=== PATIENT | male | born 1955 | race Caucasian/White ===

== ENCOUNTER 2024-10-22 12:18 | Outpatient (CLI) | payer MEDICARE, SELFPAY ==
--- NOTE | 2024-10-29 15:39 | WPDHOLTEREM ---
Holter/Event Monitor Holter/Event Monitor Date of procedure: 10/22/24 Holter/Event Procedure: 3-7 Day Holter Monitor Indications: Hypertension Conclusion: 1. 5 days holter monitor on 10/22/24. 2. Underlying rhythm is atrial fibrillation, HR range 43-143 bpm; average HR 73 bpm. HR at 43 bpm was on 10/23/24 at 4:20 am. 3. No other supraventricular arrhythmias. 4. There are rare premature ventricular complexes and rate ventricular couplets. No ventricular tachycardia. 5. No significant pauses greater than 3 seconds. 6. Patient reports 3 episodes of symptoms of lightheadedness which demonstrate atrial fibrillation, HR range 47-101 bpm.
== END 2024-10-22 12:19 | disposition home or self-care (01) ==
PROVIDERS: PCP Family Medicine; Visit Provider Family Medicine
DX: I48.91 Unspecified atrial fibrillation (principal); K40.90 Unilateral inguinal hernia, without obstruction or gangrene, not specified as recurrent; G62.9 Polyneuropathy, unspecified; I10 Essential (primary) hypertension; E78.5 Hyperlipidemia, unspecified
CPT/HCPCS: 93242

== ENCOUNTER 2025-01-07 09:26 | Outpatient (CLI) | payer MEDICARE, SELFPAY ==
--- NOTE | ~2025-01-07 | US_ITS ---
US pelvic limited 01/07/2025 10:12 Indication: Pain in the groin region Procedure: High-resolution ultrasound of the right and left groin Comparison: No prior studies for comparison. Findings: Normal heterogeneous soft tissues without evidence for focal mass, fluid collection or shweta ia. Impression: 1: Normal bilateral ultrasound of the groin. Reviewed, dictated and finalized at location A. Impression: 1: Normal bilateral ultrasound of the groin.
--- OUTSIDE RECORDS SUMMARY | 2025-01-07 10:14 | XMS_ITS | Clinical Summary ---
Author Organization [facility] Address [facility] [place] [address] Care Team Providers Care Taping Foreman Name Role Phone Adrián Padilla MD Primary Care Provider [phone]- [phone] Allergies Active Allergy Reactions Criticality Noted Date Comments Lisinopril Cough 07/18/2014 Morphine And Codeine Rash Low 03/11/2013 Medications latanoprost 0.005 % ophthalmic solution 9 Active atenolol (TENORMIN) 50 MG tabletIndications: Essential hypertension Take 1 tablet (50 mg total) by mouth 2 (two) times daily. 180 tablet 3 3 Active simvastatin (ZOCOR) 10 MG tabletIndications: Mixed hyperlipidemia Take 1 tablet (10 mg total) by mouth daily. 90 tablet 3 3 Active metroNIDAZOLE (ROSADAN) 0.75 % gelIndications:Ros acea Apply topically 2 (two) times daily. 135 g 3 3 Active meloxicam (MOBIC) 15 MG tabletIndications: Primary osteoarthritis involving multiple joints Take 1 tablet (15 mg total) by mouth daily. 90 tablet 3 3 Active losartan (COZAAR) 50 MG tabletIndications: Essential hypertension Take 1 tablet (50 mg total) by mouth daily. 90 tablet 3 3 Active Active Problems Problem Noted Date Diagnosed Date Morbid (severe) obesity due to excess calories 0 06/20/2022 Skin tag 10/13/2021 Dermatitis 10/29/2019 Bilateral impacted cerumen 10/29/2019 Pilar cyst 09/27/2017 Seborrheic keratosis 09/27/2017 Tinea cruris 09/27/2017 Type 2 diabetes mellitus wit hout complication, without long-term current use of insulin ([facility]) 04/10/2017 Rosacea 02/15/2016 Osteoarthrosis 08/12/2014 Essential hypertension 01/01/2014 Overview (04/10/2019): Description: prior to 04/30/2012 Capillary hemangioma 01/01/2014 Mixed hyperlipidemia 03/11/2013 Resolved Problems Problem Noted Date Diagnosed Date Resolved Date Cellulitis 07/18/2014 05/16/2022 Cerumen impaction 03/11/2013 05/16/2022 Conjunctivitis 03/11/2013 05/16/2022 Encounter for preventive health examination 03/11/2013 06/25/2020 Immunizations Name Administration Dates Next Due Fluzone High Dose - >Age 65 (Prefilled Syringe) 08/15/2023 Influenza (Generic) 07/19/2014 Influenza Adult (Generic) 08/15/2023,07/31/2022, 09/13/2021 Pneumococcal (Pneumovax 23) 09/30/2021, 4 Pneumococcal (Prevnar 7) 10/15/2013 Tdap (Generic) 04/30/2012 Family History Medical History Relation Comments Stroke Father Breast Cancer Mother Relation Status Comments Father (Age 76) Mother (Age 63) Social History Tobacco Use Types Packs/Day Years Used Date Smoking Tobacco: Never Smokeless Tobacco: Never Alcohol Use Standard Drinks/Week Comments Not Currently 0 (1 standard drink = 0.6 oz pur e alcohol) Sex and Gender Information Value Date Recorded Sex Assigned at Not on file Legal Sex Male 5:00 PM CDT Gender Identity Not on file Sexual Orientation Not on file 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 Not on file Not on file Not on yajaira e Last Filed Vital Signs Vital Sign Reading Time Taken Comments Blood Pressure 170/102 09/25/2023 1:03 PM MICROFILM TECHNICIAN Pulse 56 04/22/2019 2:10 PM CDT Temperature 36.8 C (98.2 F) 10/29/2019 3:32 PM MICROFILM TECHNICIAN Respiratory Rate - - Oxygen Saturation - - Inhaled Oxygen Concentration - - Weight 116.1 kg (256 lb) 09/25/2023 1:03 PM MICROFILM TECHNICIAN Height 170.2 cm (5' 7 ) 07/02/2023 3:23 PM CDT Body Mass Index 40.1 07/02/2023 3:23 PM CDT Plan of Treatment Health Maintenance Due Date Last Done Comments Colorectal Cancer Screening Colonoscopy (10 Years) 1955 Kidney Health Evaluation 1955 Diabetes: Retinopathy Eye Exam 1973 Hepatitis C 1973 Zoster Vaccines (1 of 2) 2005 RSV Immunization or 60+ Years (1 - Risk 60-74 years 1-dose series) 2015 DTaP, Tdap and Td Vaccines (2 - Td or Tdap) 04/30/2022 04/30/2012 Pneumococcal Vaccine: 65+ Years (2 of 2 - PCV) 09/30/2022 09/30/2021, 12/05/2013, 10/15/2013 Hemoglobin A1C 01/16/2024 07/17/2023, 07/16, 09/13/2021, Additional history exists COVID-19 Vaccine ( season) 2024 08/11/2021, 12/19/2020 Annual Medicare Wellness Visit 07/03/2024 07/02/2023 Influenza Adult (#1) 2024 08/15/2023, 08/15/2023, 07/31/2022, Additional history exists Lipid Panel 07/17/2024 07/17/2023, 1012/2022, 08/11/2022, Additional history exists Meningococcal B Vaccine Aged Out No l onger eligible based on patient's age to complete this topic Meningococcal Vaccine Aged Out No delano maru eligible based on patient's age to complete this topic RSV Immunizations Under 20 Months Aged Out No longer eligible based on patient's age to complete this topic Procedures Procedure Name Priority Date/Time Associated Diagnosis Comments HEMOGLOBIN, GLYCOSYLATED Routine 07/17/2023 8:58 AM CDT Essential hypertension Type 2 diabetes mellitus without complication, without long-term current use of insulin LIPID PANEL Routine 07/17/2023 8:57 AM CDT Essential hypertension Type 2 diabetes mellitus without complication, without long-term current use of insulin from Last 3 Months or Most Recently Relevant to Health Maintenance Results * HEMOGLOBIN, GLYCOSYLATED (07/17/2023 8:58 AM CDT) HGB A1C 6.1 4.2 - 6.5 % [facility] 07/17/2023 8:58 AM CDT us Adrián Padilla MD LABORATORY Final Resul t [facility] [address] [facility] [address] [place] [id number], * LIPID PANEL (07/17/2023 8:57 AM CDT) CHOLESTEROL 149 0 - 199 MG/DL [facility] TRIGLYCERIDES 118 0.00 - 150.00 MG/DL [facility] Comment: NCEP REFERENCE VALUES FOR TRIGLYCERIDES: NORMAL: <150 MG/DL BORDERLINE HIGH: 150 - 199 MG/DL HIGH: 200 - 499 MG/DL VERY HIGH: >/= 500 MG/DL HDL 44 >40 MG/DL [facility] LDL (CALCULATED) 84 0 - 99 MG/DL [facility] Comment: CUTOFF VALUES RECOMMENDED BY THE NATIONAL CHOLESTEROL EDUCATION PROGRAM: DESIRABLE: CHOLESTEROL <200 MG/DL LDL <100 MG/DL BORDERLINE: CHOLESTEROL 200-239 MG/DL LDL 101-159 MG/DL HIGHER RISK: CHOLESTEROL >240 MG/DL LDL >160 MG/DL, HDL <40 MG/DL NON HDL CHOLESTEROL 105 NO REFERENCE RANGE MG/DL [facility] Comment: A REASONABLE GOAL FOR NON-HDL CHOLESTEROL IS ONE THAT IS 30 MG/DL HIGHER THAN THE LDL CHOLESTEROL GOAL. CHOL/HDL RATIO 3.4 0.0 - 5.0 . [facility] Comment: IS PATIENT FASTING?->YES ON FEBRUARY 06, 2023, [facility] CHANGED THE EQUATION FOR CALCULATING ESTIMATED LOW-DENSITY LIPOPROTEIN-CHOLESTEROL (LDL-C) FROM THE FRIEDEWALD EQUATION TO THE HEATHER/LLANOS EQUATION. THIS NEW EQUATION IS ONLY VALID FOR LIPID PANELS WITH TRIGLYCERIDES < 400 MG/DL. STUDIES HAVE DEMONSTRATED THAT THIS NEW EQUATION WILL IMPROVE THE ACCURACY OF LDL-C, ESPECIALLY IN SCENARIOS WHEN LDL-C CONCENTRATIONS ARE RELATIVELY LOW (< 100 MG/DL), TRIGLYCERIDES ARE ELEVATED, OR PATIENT IS NON-FASTING. REFERENCES: - OSVALDO ROMERO, MARTY SARAH, JULIETA MONSALVE, RADHA MANNING, RADHA CLEMENTE, MAY LOWRY, AND ERIKA ROLDAN. 2013. COMPARISON OF A NOVEL METHOD VS THE FRIEDEWALD EQUATION FOR ESTIMATING LOW-DENSITY LIPOPROTEIN CHOLESTEROL LEVELS FROM THE STANDARD LIPID PROFILE. GENARO: THE JOURNAL OF THE [employer] 310 (19): 2061-68. - KIEL V, FLORA J, NANI A, TAMIA M, АЛЕКСАНДР R, MAGNOLIA E, ESSENCE RS, JAMRA SR, HEATHER SS. FASTING VERSUS NONFASTING AND LOW-DENSITY LIPOPROTEIN CHOLESTEROL ACCURACY. CIRCULATION. 2018 OCT 16;137(1):10-19. 07/17/2023 8:57 AM CDT 07/18/2023 6:11 AM CDT us Adrián Padilla MD LABORATORY Final Resul t [facility] [address] [place] [address], from Last 3 Months or Most Recently Relevant to Health Maintenance Insurance [facility]ICARE [facility] Care Teams Taping Foreman Relationship Specialty Start Date End Date Adrián Padilla MD [address] [phone] PCP - General 09/11/15
== END 2025-01-07 09:27 | disposition home or self-care (01) ==
PROVIDERS: PCP Family Medicine; Visit Provider Family Medicine
DX: K40.90 Unilateral inguinal hernia, without obstruction or gangrene, not specified as recurrent (principal)
CPT/HCPCS: 76857

== ENCOUNTER 2025-01-26 12:24 | Outpatient (CLI) | payer MEDICARE, SELFPAY ==
--- NOTE | 2025-01-26 12:45 | ECHO_ITS ---
Patient Info Name: Garrison Montemayor Age: 69 years : 1955 Gender: Male Ht: 69 in Wt: 240 lbs BSA: 2.34 m2 HR: 75 bpm BP: 116 / 83 mmHg Heart Rhythm: Atrial Fibrillation Technical Quality: Good Exam Date: 01/26/2025 12:50 PM Exam Location: Echo Lab Patient Status: Outpatient Admit Date: 01/26/2025 Staff Ordering Physician: Elvin Houser DO Special Library Librarian: Davina Rios RDCS Attending Provider: Elvin Houser DO Referring Physician: Mik YUSUF; Exam Type: CA echo doppler color flow Study Info Indications R06.09 - Other forms of dyspnea Complete two-dimensional, color flow and Doppler transthoracic echocardiogram is performed. Summary 1. Complete two-dimensional, color flow and Doppler transthoracic echocardiogram is performed. 2. Left ventricular chamber dimension is normal. 3. Left ventricular systolic function is normal, estimated at 60-65%. 4. The left ventricular diastolic function is abnormal. 5. E/e' 10 is mildly elevated. 6. Left atrial chamber dimension is moderately enlarged. 7. Right atrial chamber dimension is mildly enlarged. 8. There is mild aortic valve sclerosis. 9. There is mild aortic valve regurgitation. 10. There is mild mitral valve regurgitation. 11. There is mild tricuspid valve regurgitation. 12. No pulmonary hypertension, estimated pulmonary arterial systolic pressure is 27 mmHg. 13. There is mild pulmonic regurgitation. Left Ventricle E/e' 10 is mildly elevated. Left ventricular chamber dimension is normal. Left ventricular systolic function is normal, estimated at 60-65%. The left ventricular diastolic function is abnormal. Right Ventricle Right ventricular systolic function is normal and with normal TAPSE 1.8 cm. Right ventricular chamber dimension is normal. Left Atria Left atrial chamber dimension is moderately enlarged. Right Atria Right atrial chamber dimension is mildly enlarged. Aortic Valve The aortic valve is trileaflet. There is mild aortic valve sclerosis. There is no aortic valve stenosis. There is mild aortic valve regurgitation. Pulmonic Valve There is mild pulmonic regurgitation. Mitral Valve There is no mitral valve stenosis. There is mild mitral valve regurgitation. Tricuspid Valve There is mild tricuspid valve regurgitation. No pulmonary hypertension, estimated pulmonary arterial systolic pressure is 27 mmHg. Pericardium/Pleural There is no pericardial effusion. Inferior Vena Cava Normal inferior vena cava with >50% collapse upon inspiration consistent with normal right atrial pressure, 5 mmHg. Aorta The aortic root size at the sinus of Valsalva is normal. Left Ventricular Outflow Tract Name Value Normal LVOT 2D LVOT Diameter 2.0 cm Pulmonic Valve Name Value Normal RVOT Doppler RVOT Peak Gradient 2 mmHg PV Doppler PV Peak Gradient 4 mmHg Mitral Valve Name Value Normal MV Doppler MV Decel [place] 577 cm/s2 MV PHT 47 ms MV Area (PHT) 4.7 cm2 4.0-5.0 MV Diastolic Function MV E Peak Velocity 93 cm/s MV A Peak Velocity 0 cm/s MV E/A 186.4 MV Decel Time 161 ms Tricuspid Valve Name Value Normal TV Regurgitation Doppler TR Peak Velocity 237 cm/s TR Peak Gradient 21 mmHg Estimated PAP/RSVP RA Pressure 5 mmHg <=5 PA Systolic Pressure 27 mmHg <36 RV Systolic Pressure 27 mmHg <36 Aorta Name Value Normal Ascending Aorta Ao Root Diameter (MM) 3.8 cm Ao Root Diam Index (MM) 1.6 cm/m2 Aortic Valve Name Value Normal AV Doppler AV Peak Velocity 119 cm/s AV Peak Gradient 5 mmHg AV Mean Gradient 3 mmHg AV VTI 23 cm AV Regurgitation 2D LVOT Area 3.0 cm2 AV Regurgitation Doppler AR Decel Time 2,774 ms AR Decel [place] 150 cm/s2 AR PHT 804 ms Ventricles Name Value Normal LV Dimensions 2D/MM IVS Diastolic Thickness (2D) 1.1 cm 0.6-1.0 IVS Diastole Thickness (MM) 1.0 cm 0.6-1.0 LVID Diastole (2D) 5.3 cm 4.2-5.8 LVID Diastole (MM) 6.3 cm 4.2-5.8 LVIW Diastolic Thickness (2D) 1.1 cm 0.6-1.0 LVIW Diastolic Thickness (MM) 1.1 cm 0.6-1.0 LVID Systole (2D) 3.9 cm 2.5-4.0 LVID Systole (MM) 3.8 cm 2.5-4.0 LVOT Diameter 2.0 cm LV Mass (2D Cubed) 233.98 g 88.00-224.00 LV Mass Index (2D Cubed) 100 g/m2 49-115 Relative Wall Thickness (2D) 0.41 LV Mass (MM Cubed) 286.19 g 88.00-224.00 LV Mass Index (MM Cubed) 122 g/m2 49-115 Relative Wall Thickness (MM) 0.34 LV Fractional Shortening/Ejection Fraction 2D/MM LV Fractional Shortening (2D) 27 % 25-43 LV Fractional Shortening (MM) 39 % 25-43 LV EF (MM Teicholz) 69 % 52-72 LV EF (2D Teicholz) 52 % 52-72 LV Diastolic Volume (4C MOD) 89 ml LV EF (4C MOD) 58 % LV Diastolic Volume (2C MOD) 61 ml LV EF (2C MOD) 49 % LV Diastolic Volume (BP MOD) 74 ml 62-150 LV Diastolic Volume Index (BP MOD) 32 ml/m2 34-74 LV Systolic Volume (BP MOD) 36 ml 21-61 LV Systolic Volume Index (BP MOD) 16 ml/m2 11-31 LV EF (BP MOD) 51 % 52-72 LV Diastolic Length (4C) 7.2 cm LV Systolic Length (4C) 6.7 cm LV Stroke Volume (4C MOD) 51 ml Atria Name Value Normal LA Dimensions LA Dimension (MM) 5.0 cm 3.0-4.1 LA Volume (4C A-L) 91 ml LA Volume (BP A-L) 82 ml RA Dimensions RA Area (4C) 19.3 cm2 <=18.0 Report Signatures
--- OUTSIDE RECORDS SUMMARY | 2025-01-26 13:35 | XMS_ITS | Clinical Summary ---
Author Organization [facility] Address [facility] [place] [address] Care Team Providers Care Shaft Tender Name Role Phone Adrián Padilla MD Primary Care Provider [phone]- [phone] Allergies Active Allergy Reactions Criticality Noted Date [...] complication, without long-term current use of insulin ([facility]) 04/10/2017 Rosacea 02/15/2016 Osteoarthrosis 08/12/2014 Essential hypertension 01/01/2014 Overview (04/10/2019): Description: prior to 04/30/2012 Capillary hemangioma 01/01/2014 Mixed hyperlipidemia 03/11/2013 Resolved Problems Problem Noted Date Diagnosed Date Resolved Date Cellulitis 07/18/2014 05/16/2022 Cerumen impaction 03/11/2013 05/16/2022 Conjunctivitis 03/11/2013 05/16/2022 Encounter for preventive health examination 03/11/2013 06/25/2020 Immunizations Immunization Administration Dates Next Due Fluzone High Dose [...] Comments Blood Pressure 170/102 09/25/2023 1:03 PM SCHOOL CUSTODIAN Pulse 56 04/22/2019 2:10 PM CDT Temperature 36.8 C (98.2 F) 10/29/2019 3:32 PM SCHOOL CUSTODIAN Respiratory Rate - - Oxygen Saturation - - Inhaled Oxygen Concentration - - Weight 116.1 kg (256 lb) 09/25/2023 1:03 PM SCHOOL CUSTODIAN Height 170.2 cm (5' 7 ) 07/02/2023 [...] Td or Tdap) 04/30/2022 04/30/2012 Pneumococcal Vaccine: 50+ Years (2 of 2 - PCV) 09/30/2022 09/30/2021, 12/05/2013, 10/15/2013 Hemoglobin A1C 01/16/2024 07/17/2023, 07/16, 09/13/2021, Additional history exists COVID-19 Vaccine ( season) 2024 08/11/2021, 12/19/2020 Annual Medicare Wellness Visit 07/03/2024 07/02/2023 Lipid Panel 07/17/2024 07/17/2023, 12/2022, 08/11/2022, Additional history exists Meningococcal B Vaccine [...] LABORATORY Final Resul t [facility] [address] [facility] [address] [place] [address], * LIPID PANEL (07/17/2023 8:57 AM CDT) CHOLESTEROL 149 0 - 199 MG/DL [facility] TRIGLYCERIDES 118 0.00 - 150.00 MG/DL [facility] Comment: NCEP REFERENCE VALUES FOR TRIGLYCERIDES: NORMAL: <150 MG/DL BORDERLINE HIGH: 150 - 199 MG/DL HIGH: 200 - 499 MG/DL VERY HIGH: >/= 500 MG/DL HDL 44 >40 MG/DL [facility] LDL (CALCULATED) 84 0 - 99 MG/DL [facility] Comment: CUTOFF VALUES RECOMMENDED BY THE NATIONAL CHOLESTEROL EDUCATION PROGRAM: DESIRABLE: CHOLESTEROL <200 MG/DL LDL <100 MG/DL BORDERLINE: CHOLESTEROL 200-239 MG/DL LDL 101-159 MG/DL HIGHER RISK: CHOLESTEROL >240 MG/DL LDL >160 MG/DL, HDL <40 MG/DL NON HDL CHOLESTEROL 105 NO REFERENCE RANGE MG/DL [facility] Comment: A REASONABLE GOAL FOR NON-HDL CHOLESTEROL IS ONE THAT IS 30 MG/DL HIGHER THAN THE LDL CHOLESTEROL GOAL. CHOL/HDL RATIO 3.4 0.0 - 5.0 . [facility] Comment: IS PATIENT FASTING?->YES ON FEBRUARY 06, 2023, [facility] CHANGED THE EQUATION FOR CALCULATING ESTIMATED [...] - OSVALDO ROMERO, MARTY SARAH, JULIETA MONSALVE, PETER P. KERRIRADHA Gutierrez, MAY LOWRY, AND ERIKA ROLDAN. 2013. COMPARISON OF A NOVEL METHOD VS THE FRIEDEWALD EQUATION FOR ESTIMATING LOW-DENSITY LIPOPROTEIN CHOLESTEROL LEVELS FROM THE STANDARD LIPID PROFILE. GENARO: THE JOURNAL OF THE [employer] 310 (19): 2061-68. - KIEL V, FLORA J, NANI A, TAMIA M, АЛЕКСАНДР R, MAGNOLIA E, ESSENCE RS, JAMAR SR, HEATHER SS. FASTING VERSUS NONFASTING AND LOW-DENSITY LIPOPROTEIN CHOLESTEROL ACCURACY. CIRCULATION. 2018 OCT 16;137(1):10-19. 07/17/2023 8:57 AM CDT 07/18/2023 6:11 AM CDT us Adrián Padilla MD LABORATORY Final Resul t [employer] [place] [address], from Last 3 Months or Most Recently Relevant to Health Maintenance Insurance MEDICARE [facility] Member Subscriber Plan / Payer (Ef fective 2024-Present) Name:Garrison Montemayor Relation to Subscriber:Self Name:Garrison Montemayor Payer ID:[id number] Group ID:[id number] [id number] Type:Not on file Address: [address] [place] [phone] [address] [place] [id number] Care Teams Shaft Tender Relationship Specialty Start Date End Date Adrián Padilla MD [address] [phone] PCP - General 09/11/15
== END 2025-01-26 12:25 | disposition home or self-care (01) ==
LOC: ANHCARD 12:25
PROVIDERS: PCP Family Medicine; Visit Provider Internal Medicine Cardiovascular Disease
DX: R06.09 Other forms of dyspnea (principal); R93.1 Abnormal findings on diagnostic imaging of heart and coronary circulation
CPT/HCPCS: 93306

== ENCOUNTER 2025-04-03 08:42 | Outpatient (CLI) | payer MEDICARE, SELFPAY ==
--- NOTE | ~2025-04-03 | US_ITS ---
EXAMINATION: US arterial ankle brachial ind DATE: 04/03/2025 09:32 INDICATION: Peripheral vascular disease TECHNIQUE: Segmental pressures and plethysmographic and Doppler waveforms of the brachial and lower e xtremity arteries were obtained. COMPARISON: None. FINDINGS: Right and left brachial artery pressures of 111 mm Hg and 115 mm Hg, respectively, are concordant (no rmal difference <= 30 mmHg). The right ankle-brachial index (ALEX) is 1.54 (normal >= 0.9-1.0). The right great toe-brachial index (TBI) is 0.58 (normal >= 0.65). Arterial Doppler waveforms are biphasic with brisk systolic upstrokes at both right posterior tibial and dorsalis pedis arteries. The left ALEX is 1.42. The left TBI is 0.78. Arterial Doppler waveforms are triphasic at the left post erior tibial artery and monophasic at the left dorsalis pedis artery, both with brisk systolic upstro kes. IMPRESSION: 1. Mild arterial occlusive disease to the right lower limb with normal right ALEX but mildly decreased right TBI. 2. No significant arterial occlusive disease to left lower limb with normal left ALEX and TBI. Reviewed, dictated and finalized at location B. IMPRESSION: 1. Mild arterial occlusive disease to the right lower limb with normal right AB I but mildly decreased right TBI. 2. No significant arterial occlusive disease to left lower limb with normal lef t ALEX and TBI.
== END 2025-04-03 08:43 | disposition home or self-care (01) ==
PROVIDERS: PCP Family Medicine; Visit Provider Family Medicine
DX: G62.9 Polyneuropathy, unspecified (principal); I73.9 Peripheral vascular disease, unspecified
CPT/HCPCS: 93922

== ENCOUNTER 2025-07-14 12:27 | Outpatient (CLI) | payer MEDICARE, SELFPAY ==
--- NOTE | ~2025-07-14 | XR_ITS ---
EXAMINATION: XR shoulder RT min 2V, 07/14/2025 12:38 CDT HISTORY: M25.511 - Pain in right shoulder, ANTERIOR AND POSTERIOR COMPARISON: No comparisons available. Findings: No acute fracture or malalignment. Severe degenerative changes with small calcified loose bodies suspected. Soft tissues unremarkable. Impression: No acute fracture or malalignment. Reviewed, dictated and finalized at location P. Impression: No acute fracture or malalignment.
--- OUTSIDE RECORDS SUMMARY | 2025-07-14 12:31 | XMS_ITS | Clinical Summary ---
Author Organization [facility] Address [facility] [place] [address] Care Team Providers Care Certified Anesthesiologist Assistant Name Role Phone Adrián Padilla MD Primary Care Provider [phone]- [phone] Allergies Active Allergy Reactions Criticality Noted Date [...] complication, without long-term current use of insulin ([facility]) 04/10/2017 Rosacea 02/15/2016 Osteoarthrosis 08/12/2014 Essential hypertension [...] Comments Blood Pressure 170/102 09/25/2023 1:03 PM GARDEN TRACTOR MECHANIC Pulse 56 04/22/2019 2:10 PM CDT Temperature 36.8 C (98.2 F) 10/29/2019 3:32 PM GARDEN TRACTOR MECHANIC Respiratory Rate - - Oxygen Saturation - - Inhaled Oxygen Concentration - - Weight 116.1 kg (256 lb) 09/25/2023 1:03 PM GARDEN TRACTOR MECHANIC Height 170.2 cm (5' 7) 07/02/2023 3:23 PM CDT Body Mass Index [...] 01/16/2024 07/17/2023, 07/16, 09/13/2021, Additional history exists Annual Medicare Wellness Visit 07/03/2024 07/02/2023 Lipid Panel 07/17/2024 07/17/2023, 12/2022, 08/11/2022, Additional history exists COVID-19 Vaccine ( season) 2025 08/11/2021, 12/19/2020 Meningococcal B Vaccine Aged Out No l [...] Final Resul t [facility] [address] [facility] [address] [place] [address], * LIPID PANEL (07/17/2023 8:57 AM CDT) CHOLESTEROL 149 0 - 199 MG/DL [facility] TRIGLYCERIDES 118 0.00 - 150.00 MG/DL [facility] Comment: NCEP REFERENCE VALUES FOR TRIGLYCERIDES: NORMAL: <150 MG/DL BORDERLINE HIGH: 150 - 199 MG/DL HIGH: 200 - 499 MG/DL VERY HIGH: >/= 500 MG/DL HDL 44 >40 MG/DL [facility] LDL (CALCULATED) 84 0 - 99 MG/DL [facility] Comment: CUTOFF VALUES RECOMMENDED BY THE NATIONAL CHOLESTEROL EDUCATION PROGRAM: DESIRABLE: CHOLESTEROL <200 MG/DL LDL <100 MG/DL BORDERLINE: CHOLESTEROL 200-239 MG/DL LDL 101-159 MG/DL HIGHER RISK: CHOLESTEROL >240 MG/DL LDL >160 MG/DL, HDL <40 MG/DL NON HDL CHOLESTEROL 105 NO REFERENCE RANGE MG/DL [facility] Comment: A REASONABLE GOAL FOR NON-HDL CHOLESTEROL IS ONE THAT IS 30 MG/DL HIGHER THAN THE LDL CHOLESTEROL GOAL. CHOL/HDL RATIO 3.4 0.0 - 5.0 . [facility] Comment: IS PATIENT FASTING?->YES ON FEBRUARY 06, 2023, [facility] CHANGED THE EQUATION FOR CALCULATING [...] LIPID PROFILE. GENARO: THE JOURNAL OF THE [employer] [place] 310 (19): 2061-68. - KIEL V, FLORA J, NANI A, TAMIA M, АЛЕКСАНДР R, MAGNOLIA E, ESSENCE RS, JAMAR SR, HEATHER SS. FASTING VERSUS NONFASTING AND LOW-DENSITY LIPOPROTEIN CHOLESTEROL ACCURACY. CIRCULATION. 2018 OCT 16;137(1):10-19. 07/17/2023 8:57 AM CDT 07/18/2023 6:11 AM CDT us Adrián Padilla MD LABORATORY [place] [address], from Last 3 Months or Most Recently Relevant to Health Maintenance Insurance MEDICARE [facility] Member Subscriber Plan / Payer (Ef fective 2024-Present) Name:Garrison Montemayor Relation to Subscriber:Self Name:Garrison Montemayor Payer ID:[id number] Group ID:[id number] [id number] Type:Not on file Address: [address] [place] [phone] [address] [phone] Care Teams Certified Anesthesiologist Assistant Relationship Specialty Start Date End Date Adrián Padilla MD [address] [phone] PCP - General 09/11/15
== END 2025-07-14 12:28 | disposition home or self-care (01) ==
PROVIDERS: PCP Family Medicine; Visit Provider Family Medicine
DX: M25.511 Pain in right shoulder (principal)
CPT/HCPCS: 73030

== ENCOUNTER 2025-08-21 14:57 | Outpatient (CLI) | payer MEDICARE, SELFPAY ==
--- NOTE | ~2025-08-21 | US_ITS ---
EXAMINATION: US scrotum doppler, 08/21/2025 15:08 [facility] HISTORY: N50.819 - Testicular pain, unspecified Comparison: None Technique: Lehman-scale and color Doppler images were obtained of the testes with spectral analysis to document arterial and venous flow. Findings: Right Testicle:Right testicle 4 x 2.1 x 2.9 cm, normal parenchyma, normal flow. Right Epidiymis:Unremarkable. Normal flow. Left Testicle: Left testicle 4.2 x 2.3 x 2.7 cm, normal parenchyma, normal flow. Left Epidiymis: Unremarkable. Normal flow. Hydrocele: Small simple right hydrocele. Moderate simple left hydrocele. . Varicocele: None Scrotum: Unremarkable. No skin thickening. Impression: Nonspecific bilateral hydroceles. Follow-up suggested to assess resolution Reviewed, dictated and finalized at location [facility] M Impression: Nonspecific bilateral hydroceles. Follow-up suggested to assess resolution
== END 2025-08-21 14:58 | disposition home or self-care (01) ==
PROVIDERS: PCP Family Medicine; Visit Provider Family Medicine
DX: N43.3 Hydrocele, unspecified (principal)
CPT/HCPCS: 76870; 93976